=== PATIENT | male | born 1975 | race Caucasian/White ===

== ENCOUNTER 2020-11-02 08:49 | Emergency (ER) | payer BC ==
[~2020-11-02] VITALS: Ht 175.3 cm; Wt 122.0 kg
[2020-11-02 09:00] VITALS: BP 135/88
[2020-11-02] MEDS ORDERED: AMOX1TAB61 PO (09:00)
--- NOTE | 2020-11-02 09:00 | PHYS DOC ---
General Adult HPI: HPI: Patient is a 45-year-old male coming in for right upper tooth pain. Patient states a couple of days ago he was at work he was eating something and had a chip from his tooth come off. Planning on calling his dentist tomorrow. Came in because he started noticing some puffiness to his cheek. Denies any purulent drainage, sore throat, neck pain or stiffness. Review of Systems: Review of Systems: All other systems within normal limits except for as noted in the HPI Physical Exam: PE: Constitutional: Well developed, well nourished, no acute distress, non-toxic appearance. [] HENT: Normocephalic, atraumatic, bilateral external ears normal, nose normal.. Broken tooth on right upper jaw, mild puffiness to cheek, no purulence or fluctuance in gingiva or face. [] Eyes: PERRLA, conjunctiva normal, no discharge. [] Neck: No rigidity, supple, no stridor. [] Cardiovascular: Regular rate and rhythm, brisk cap refill [] Lungs & Thorax: Non labored symmetric respirations, no tachypnea or respiratory distress [] Abdomen: Soft, nondistended. Skin: Warm, dry, no erythema, no rash. [] Back: Unremarkable Extremities: No deformities, range of motion grossly intact, no lower extremity edema [] Neurologic: Alert and oriented X 3, no focal deficits noted. [] Psychologic: Affect normal, judgement normal, mood normal. [] EKG: EKG: [] Radiology/Procedures: Radiology/Procedures: [] Heart Score: C/O Chest Pain: No Risk Factors: Risk Factors: DM, Current or recent (<one month) smoker, HTN, HLP, family history of CAD, obesity. Risk Scores: Score 0 - 3: 2.5% MACE over next 6 weeks - Discharge Home Score 4 - 6: 20.3% MACE over next 6 weeks - Admit for Clinical Observation Score 7 - 10: 72.7% MACE over next 6 weeks - Early Invasive Strategies Course & Med Decision Making: Course & Med Decision Making Pertinent Labs and Imaging studies reviewed. (See chart for details) [] Dragon Disclaimer: Dragon Disclaimer: This electronic medical record was generated, in whole or in part, using a voice recognition dictation system. Departure Departure: Impression: Primary Impression: Dental infection Disposition: HOME / SELF CARE / HOMELESS Condition: STABLE Referrals: PCP,NO (PCP) Patient Instructions: Dental Abscess Scripts Amoxicillin/Potassium Clav (AUGMENTIN 875-125 TABLET) 1 Each Tablet 1 TAB PO BID for antibiotic for 10 Days, #20 TAB 0 Refills Prov: SERA TIERNEY MD 11/02/20 SERA TIERNEY MD November 02, 2020 09:00
== END 2020-11-02 09:06 | disposition home or self-care (01) ==
LOC: ER 08:49
DX: K04.7 Periapical abscess without sinus (principal)
CPT/HCPCS: 99283

== ENCOUNTER 2020-12-10 00:30 | Emergency (ER) | payer BC ==
[~2020-12-10] VITALS: Ht 175.3 cm; Wt 119.1 kg
[~2020-12-10 00:30] MED LIST: AMOX1TAB61 PO
[2020-12-10] MEDS ORDERED: TRAM50TA PO (00:56)
[2020-12-10] MEDS ORDERED: ORPH-16 PO (00:56)
[2020-12-10] MEDS ORDERED: LIDO700A21 TP (00:56)
[2020-12-10] MEDS ORDERED: KETOROLAC 30 MG/ML VIAL. IM ONE (01:00)
[2020-12-10] MEDS ORDERED: traMADol 50 MG TABLET PO ONE (01:00)
[2020-12-10] MEDS ORDERED: ORPHENADRINE CITRATE 60 MG/2 ML VIAL. IM ONE (01:00)
--- NOTE | 2020-12-10 01:01 | PHYS DOC ---
Past History Past Medical History: No Pertinent History Past Surgical History: Other Additional Past Surgical Histo: back surgery Alcohol Use: None General Adult EDM: Chief Complaint: BACK PAIN - NO INJURY HPI: HPI: 45-year-old male with past medical history of chronic low back pain for which he underwent surgical repair several years ago presents with report of worsening pain x2 days. Patient reports he thinks he might twisted funny or lifted something at work causing exacerbation of his chronic pain. Reports radiation down left leg. Does report history of prior sciatica. Denies fever or chills. Denies dysuria or hematuria. Denies loss of bowel or bladder. Denies rash. Patient reports he had a similar aches variance approximately 1 week ago for which she was seen in the urgent care here at [facility]. Patient report s he was prescribed a steroid burst therapy as well as Flexeril with some improvement of his symptoms until today. Review of Systems: Review of Systems: Constitutional: Denies fever or chills Eyes: Denies redness or eye pain HENT: Denies nasal congestion or sore throat Respiratory: Denies cough or shortness of breath Cardiovascular: Denies chest pain or palpitations GI: Denies abdominal pain, nausea, or vomiting : Denies dysuria or hematuria Musculoskeletal: Reports back pain with radiation down left leg; denies joint pain Integument: Denies rash or skin lesions Neurologic: Denies headache, focal weakness or sensory changes; denies loss of bowel or bladder Complete systems were reviewed and found to be within normal limits, except as documented in this note. Allergies: Allergies: Allergies Coded Allergies Type Severity Reaction Last Updated Verified No Known Drug Allergies 11/02/20 No Physical Exam: PE: Constitutional: Well developed, well nourished, no acute distress, non-toxic appearance HENT: Normocephalic, atraumatic Eyes: Conjunctiva normal, no discharge Neck: Normal range of motion, supple Lungs & Thorax: No respiratory distress, equal chest rise and fall Abdomen: Soft, no tenderness Skin: Warm, dry, no erythema, no rash Back: No midline tenderness, left paraspinal lumbosacral tenderness on palpation, no CVA tenderness Extremities: No tenderness, ROM intact, no edema, left PT +2 Neurologic: Alert and oriented X 3, normal motor function, normal sensory function, no focal deficits noted Psychologic: Affect normal, judgment normal Current Patient Data: Vital Signs: Vital Signs Date Time Temp Pulse Resp B/P (MAP) Pulse Ox O2 Delivery O2 Flow Rate FiO2 12/10/20 00:36 98.4 68 18 119/71 (87) 96 Room Air EKG: EKG: [] Radiology/Procedures: Radiology/Procedures: [] Heart Score: C/O Chest Pain: N/A Course & Med Decision Making: Course & Med Decision Making Patient presents with HPI and physical exam consistent for acute on chronic low back pain with associated sciatica down left leg. Patient with history of prior surgery for similar. Denies known trauma. 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 Patient was seen by urgent care approximately 1 week ago for same and was started on steroid treatment as well as Flexeril. Reports tonight symptoms worsened. Denies loss of bowel or bladder. No midline spinal tenderness noted. Denies dysuria or hematuria. Symptomatic treatment provided. Patient stable for discharge with outpatient follow-up with PCP/pain management. Pain management referral provided. Discussed findings and plan with patient and spouse, who acknowledge understanding and agreement. Shakira Disclaimer: Shakira Disclaimer: This electronic medical record was generated, in whole or in part, using a voice recognition dictation system. Departure Departure: Impression: Primary Impression: Acute exacerbation of chronic low back pain Additional Impression: Sciatic leg pain Disposition: HOME / SELF CARE / HOMELESS Condition: STABLE Referrals: PCP,BRANDON (PCP) Patient Instructions: Chronic Back Pain, Sciatica, [id number] Additional Instructions: ICE or heat area of discomfort 20 min on then leave off next 20 mins. Repeat several times daily as needed for next few days. Follow with physical medicine and rehabilitation therapy aide- Dr. Wei Spicer for further evaluation and treatment. Address: [address] [place] [address] [address] [facility], [place] [address] Scripts Lidocaine (Lidocaine PATCH ) 1 Each Adh..patch 1 EACH TP DAILY for FOR LOCAL PAIN, #20 PATCH REMOVE AFTER 12 HOURS Prov: HOLLY DIANA DO 12/10/20 Tramadol Hcl (TRAMADOL HCL) 50 Mg Tablet 50 MG PO PRN Q6HRS PRN for PAIN, #14 TAB Prov: HOLLY DIANA DO 12/10/20 Orphenadrine Citrate (ORPHENADRINE CITRATE) 100 Mg Tablet.er 1 TAB PO BID PRN for MUSCLE PAIN, #14 TAB 0 Refills Prov: HOLLY DIANA DO 12/10/20 HOLLY DIANA DO Dec 10, 2020 01:01
[2020-12-10 01:20] VITALS: BP 120/76
== END 2020-12-10 01:27 | disposition home or self-care (01) ==
LOC: ER 00:30
DX: G89.29 Other chronic pain (principal); M54.42 Lumbago with sciatica, left side
CPT/HCPCS: 96372; 99284; J1885; J2360

== ENCOUNTER → 2021-01-29 | Outpatient (CLI) | payer BC ==
[~2021-01-29] MED LIST changes: +LIDO700A21 TP; +ORPH-16 PO; +TRAM50TA PO
--- NOTE | 2021-01-29 15:17 | RAD ---
EXAM: Lumbar spine, 5 views. HISTORY: Pain after chiropractor. COMPARISON: None. FINDINGS: 5 views of the lumbar spine are obtained. There is instrumented posterior spinal fusion wit h disc space fusion device placement and laminotomy decompression at L5-S1. There is grade 1 anteroli sthesis, endplate remodeling and facet arthropathy at this level. There is slight retrolisthesis of L 4 and L5. There is degenerative endplate remodeling and Schmorl's node formation at multiple addition al lower thoracic and lumbar levels. The right L1 transverse process is incidentally can gently nonfu sed. IMPRESSION: 1. Instrumented fusion and laminotomy decompression at L5-S1. There is grade 1 anterolisthesis and de generative change primarily at this level. 2. Mild multilevel degenerative change throughout the remainder of the lumbar spine. No acute osseous finding. Electronically signed by: Saniya Kim MD (01/29/2021 3:15 PM) [id number]
== END ==
LOC: RAD 01-28 17:01
PROVIDERS: ATTEND Physician Assistant
DX: M47.816 Spondylosis without myelopathy or radiculopathy, lumbar region (principal); M43.16 Spondylolisthesis, lumbar region; M51.46 Schmorl's nodes, lumbar region; Z98.890 Other specified postprocedural states
CPT/HCPCS: 72110

== ENCOUNTER 2021-07-10 21:02 | Emergency (ER) | payer SELFPAY ==
[~2021-07-10] VITALS: Ht 175.3 cm; Wt 119.1 kg
[2021-07-10 21:31] VITALS: BP 120/76
--- NOTE | 2021-07-10 21:32 | PHYS DOC ---
Past History Past Medical History: No Pertinent History (LAURA LAM APRN) Past Surgical History: Other Additional Past Surgical Histo: back surgery (LAURA LAM APRN) Alcohol Use: None (LAURA LAM APRN) General Adult EDM: Chief Complaint: KNEE INJURY HPI: HPI: Patient is a 46-year-old male who presents to the emergency department for anterior right knee pain that occurred after a fall when he slipped on the ice on June 29. Patient rates his pain 2 out of 10. It is worse with bearing weight, walking up steps and twisting. He took a tramadol at 1345 today. Patient reports that he has been able to ambulate. He denies any decreased range of motion or decreased sensation in his extremity. (LAURA LAM APRN) Review of Systems: Review of Systems: Constitutional: negative unless reported in HPI Eyes: negative unless reported in HPI HENT: negative unless reported in HPI Respiratory: negative unless reported in HPI Cardiovascular: negative unless reported in HPI GI: negative unless reported in HPI : negative unless reported in HPI Musculoskeletal: negative unless reported in HPI Integument: negative unless reported in HPI Neurologic: negative unless reported in HPI Endocrine: negative unless reported in HPI Lymphatic: negative unless reported in HPI Psychiatric: negative unless reported in HPI (LAURA LAM APRN) Allergies: Allergies: Allergies Coded Allergies Type Severity Reaction Last Updated Verified No Known Drug Allergies 11/02/20 No (LAURA LAM APRN) Physical Exam: PE: Constitutional: Well developed, well nourished, no acute distress, non-toxic appearance. [] HENT: Normocephalic, atraumatic Eyes: PERRL, EOMI, conjunctiva normal, no discharge. [] Neck: Normal range of motion, no stridor Cardiovascular: Normal peripheral perfusion Lungs & Thorax: Normal work of breathing, no tachypnea Abdomen: Obese and soft Skin: Warm, dry, no erythema, no rash. [] Back: Normal range of motion Extremities: No tenderness, no cyanosis, no clubbing, ROM intact, no edema. [] Right knee: No swelling, no obvious deformity, no wounds, no joint laxity, no crepitus, range of motion intact, neuro intact Neurologic: Alert and oriented X 3, normal motor function, normal sensory function, no focal deficits noted. [] Psychologic: Affect normal, judgement normal, mood normal. [] (LAURA LAM APRN) EKG: EKG: [] (LAURA LAM APRN) Radiology/Procedures: Radiology/Procedures: [] (LAURA LAM APRN) Heart Score: C/O Chest Pain: N/A Risk Factors: Risk Factors: DM, Current or recent (<one month) smoker, HTN, HLP, family history of CAD, obesity. Risk Scores: Score 0 - 3: 2.5% MACE over next 6 weeks - Discharge Home Score 4 - 6: 20.3% MACE over next 6 weeks - Admit for Clinical Observation Score 7 - 10: 72.7% MACE over next 6 weeks - Early Invasive Strategies (LAURA LAM APRN) Course & Med Decision Making: Course & Med Decision Making Pertinent Labs and Imaging studies reviewed. (See chart for details) [] Patient was seen in the emergency department for a right anterior knee pain after tripping on the ice and falling 11 days ago. X-ray was performed of the right knee that showed no acute findings as read by this MAINTENANCE MANAGER and supervising physician. Patient is placed in Sav wrap. Patient has tramadol at home for his pain. Patient advised to continue taking the tramadol anti-inflammatory medications and apply ice. I discussed with patient all findings and diagnostic testing as well as the need to follow-up with PCP for further evaluation and treatment or return to the ER if any new or worsening symptoms. Strict return precautions were also discussed at length. Patient voiced understanding and agreement with the plan. Patient is hemodynamically stable at the time of disposition. (LAURA LAM APRN) Course & Med Decision Making Did not see or evaluate patient. Did not discuss patient with MAINTENANCE MANAGER. Agree with MAINTENANCE MANAGER's work-up and disposition per note (RAMÓN HAWLEY MD) Dragon Disclaimer: Dragon Disclaimer: This electronic medical record was generated, in whole or in part, using a voice recognition dictation system. (LAURA LAM APRN) Departure Departure: Impression: Primary Impression: Knee sprain Qualified Codes: S83.91XA - Sprain of unspecified site of right knee, initial encounter Disposition: HOME / SELF CARE / HOMELESS Condition: GOOD Referrals: JÚNIOR JENKINS MD (PCP) Patient Instructions: RICE - Routine Care for Injuries Additional Instructions: You were seen in the emergency department for right knee pain after a fall that occurred on June 29. An x-ray was performed that showed no acute findings. Your knee was placed in an Sav wrap for comfort. This will likely improve over time. Your symptoms may be improved by something called the rice protocol. This is rest, ice, compression, elevation. Please follow-up when doing intense exercises that may make the pain worse. Sometimes gentle stretching can provide relief, but be careful to injury. It is important to perform gentle range of motion exercises to prevent stiff joints and chronic pain. Use ice packs over the affected areas to help decrease your pain. For the first 24 hours you can apply ice 20 minutes on 20 minutes off for 4 times per day. Sometimes compression such as the use of an Sav wrap can help with the swelling. You may also elevate the affected area to help with the swelling. You can continue taking your tramadol at home for severe pain also take anti-inflammatory medications. Follow-up with your primary care provider Tuesday regarding your ER visit. Return to the emergency department if you have new injury or develop worsening of your pain, increased swelling, decreased range of motion, decreased sensation in your extremity or inability to bear weight. LAURA LAM APRN Jul 10, 2021 21:32 RAMÓN HAWLEY MD Jul 10, 2021 22:03
--- NOTE | 2021-07-10 21:57 | RAD ---
Right knee 3 views. HISTORY: Fall 3 views were taken of the right knee. There is not evidence of an acute fracture or osseous abnormali ty. There is no joint effusion. IMPRESSION: 1. Negative right knee. Electronically signed by: Tom Romero MD (07/10/2021 9:54 PM) [facility]
== END 2021-07-10 22:07 | disposition home or self-care (01) ==
LOC: ER 21:02
DX: S83.91XA Sprain of unspecified site of right knee, initial encounter (principal); W00.0XXA Fall on same level due to ice and snow, initial encounter; Y93.89 Activity, other specified; Y92.89 Other specified places as the place of occurrence of the external cause; Y99.8 Other external cause status
CPT/HCPCS: 73562; 99283